=== PATIENT | female | born 1970 | race Caucasian/White ===

== ENCOUNTER 2020-07-18 16:19 | Emergency (ER) | payer MEDICAID ==
[~2020-07-18] VITALS: Ht 167.6 cm; Wt 85.0 kg
[2020-07-18] MEDS ORDERED: ONDANSETRON PF 4 MG/2 ML VIAL. IVP ONE (16:45)
[2020-07-18] MEDS ORDERED: IV NORMAL SALINE 1000ML BAG 1,000 ML IV ONE (16:45)
[2020-07-18] MEDS ORDERED: MORPHINE SULFATE 4 MG/ML VIAL. IV ONE (16:45)
[2020-07-18 16:56] LABS: BILIRUBIN,URINE NEGATIVE (NEG); CLARITY,URINE CLOUDY; COLOR,URINE YELLOW; NITRITE,URINE NEGATIVE (NEG); PH,URINE 6.5 (<5.0-8.0); PROTEIN,URINE NEGATIVE (NEG-TRACE)
[2020-07-18 17:02] LABS: BARBITURATES NEG (NEG); BENZODIAZEPINES POS (NEG); CANNABINOIDS POS (NEG); COCAINE NEG (NEG); METHADONE NEG (NEG); OPIATES NEG (NEG); PHENCYCLIDINE NEG (NEG)
[2020-07-18 17:06] LABS: AMPHETAMINE/METHAMPHETAMINE POS (NEG)
[2020-07-18 17:07] LABS: BACTERIA,URINE FEW /HPF (0-FEW); RBC,URINE 0 /HPF (0-2); SQUAMOUS EPITHELIAL CELL,UR OCC /LPF; WBC,URINE OCC /HPF (0-4)
[2020-07-18] MEDS ORDERED: METOCLOPRAMIDE HCL 10 MG/2 ML VIAL. IVP ONE (17:15)
[2020-07-18 17:36] LABS: BASO % 0 % (0-3); EOS # 0.1 x10^3/uL (0.0-0.7); EOS % 1 % (0-3); HEMOGLOBIN 13.9 g/dL (12.0-15.5); LYMPH # 1.8 x10^3/uL (1.0-4.8); LYMPH % 14 % (24-48); MEAN CORPUSCULAR HEMOGLOBIN 31 pg (25-35); MEAN CORPUSCULAR HGB CONC 34 g/dL (31-37); MEAN CORPUSCULAR VOLUME 91 fL (79-100); MONO # 0.7 x10^3/uL (0.0-1.1); MONO % 5 % (0-9); NEUT # 10.6 x10^3/uL (1.8-7.7); NEUT % 81 % (31-73); PLATELET COUNT 309 x10^3/uL (140-400); RED BLOOD COUNT 4.51 x10^6/uL (3.50-5.40); RED CELL DISTRIBUTION WIDTH 13.2 % (11.5-14.5); WHITE BLOOD COUNT 13.2 x10^3/uL (4.0-11.0)
[2020-07-18 18:02] LABS: CALCIUM 8.9 mg/dL (8.5-10.1); CREATININE 0.6 mg/dL (0.6-1.0); POTASSIUM 4.2 mmol/L (3.5-5.1)
[2020-07-18 18:05] LABS: ALBUMIN 3.3 g/dL (3.4-5.0); TOTAL BILIRUBIN 0.2 mg/dL (0.2-1.0); TOTAL PROTEIN 6.5 g/dL (6.4-8.2)
[2020-07-18] MEDS ORDERED: IOHEXOL 300 MG/ML 100ML VIAL. IV ONE (18:15)
[2020-07-18] MEDS ORDERED: CONTRAST GIVEN. MC PRN (18:15)
[2020-07-18 18:50] VITALS: BP 141/72
--- NOTE | 2020-07-18 18:59 | RAD ---
Study: CT abdomen/pelvis with intravenous contrast Indication: Abdominal pain. History of diverticulitis. Comparison: None. Technique: Helical CT imaging performed of the abdomen and pelvis after the intravenous administration of 75 cc Omnipaque 300 contrast. Sagittal and coronal reformats were obtained. One or more of the following individualized dose reduction techniques were utilized for this examination: 1. Automated exposure control 2. Adjustment of the mA and/or kV according to patient size 3. Use of iterative reconstruction technique. Findings: No acute abnormality at the lower chest. Sequela of a remote granulomatous process. A few faint subcentimeter low-attenuation foci seen within the liver are incompletely characterized but statistically most likely benign in the absence of a known malignancy. The liver measures prominent in size at around 20 cm longitudinal. The gallbladder is distended but without CT findings to suggest acute cholecystitis. Unremarkable biliary tree. The pancreas is within normal limits. The spleen is normal in size. No adrenal gland mass. No complex renal cyst or mass. No hydronephrosis. Within normal limits bladder. Left ovarian cyst or dominant follicle (the patient is pre or perimenopausal), image 56 series 2, measures up to 3.2 cm. No suspicious features to warrant short-term follow-up. Nonmasslike region of low attenuation at the lower uterine segment/cervix. There may be a uterine fibroid along the right aspect of the fundus, image 60 series 2. Scattered diverticuli without findings of diverticulitis. Mild volume well-formed stool distal to the transverse colon. Some incompletely formed stool within the more proximal colon. Normal appendix. Nonobstructed small bowel. Unremarkable stomach. Scattered calcified and noncalcified atheromatous plaque. Nonaneurysmal aorta. No lymphadenopathy. No large volume free fluid. No pneumoperitoneum. No acute or aggressive osseous process. Operative changes of dorsal decompression and posterior instrumented fusion at L4-L5. Vacuum phenomenon and extensive endplate sclerosis in keeping with adjacent segment degeneration at L5-S1 particularly lateralized to the left. Impression: 1. Diverticulosis without findings of diverticulitis. 2. Small amount of incompletely formed stool within the proximal colon could indicate a diarrheal state. There is more well-formed stool distally. No findings to suggest an overt active colitis. 3. Distended gallbladder but without CT findings of acute cholecystitis. As deemed necessary, such as if there are symptoms referrable to this region, ultrasound could be performed. 4. 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 Additional chronic observations detailed in the body the report. Electronically signed by: JAGJIT ZAMBRANO MD (07/18/2020 6:56 PM) [id number]
--- NOTE | 2020-07-18 19:17 | PHYS DOC ---
Past Medical History Past Medical History: Diverticulosis Past Surgical History: No Surgical History Smoking Status: Current Every Day Smoker Alcohol Use: None General Adult EDM: Chief Complaint: ABDOMINAL PAIN HPI: HPI: Patient is a 50 year old female with history of diverticulitis presenting today complaining of generalized abdominal pain, nausea vomiting and diarrhea intermittently for 1 week. Patient believes her diverticulitis is flaring up. Describes abdominal pain as cramping and mild. Denies anything specifically exacerbating or relieving her symptoms. Denies any hematemesis or melena. Review of Systems: Review of Systems: Constitutional: Denies fever or chills. [] Eyes: Denies change in visual acuity. [] HENT: Denies nasal congestion or sore throat. [] Respiratory: Denies cough or shortness of breath. [] Cardiovascular: Denies chest pain or edema. [] GI: Reports generalized abdominal pain with nausea vomiting and diarrhea : Denies dysuria. [] Musculoskeletal: Denies back pain or joint pain. [] Integument: Denies rash. [] Neurologic: Denies headache, focal weakness or sensory changes. [] Psychiatric: Denies depression or anxiety. [] Heart Score: Risk Factors: Risk Factors: DM, Current or recent (<one month) smoker, HTN, HLP, family history of CAD, obesity. Risk Scores: Score 0 - 3: 2.5% MACE over next 6 weeks - Discharge Home Score 4 - 6: 20.3% MACE over next 6 weeks - Admit for Clinical Observation Score 7 - 10: 72.7% MACE over next 6 weeks - Early Invasive Strategies Current Medications: Current Medications Medications (Trade) Dose Ordered Sig/Sang Start Time Stop Time Status Last Admin Dose Admin Info (CONTRAST GIVEN -- Rx MONITORING) 1 each PRN DAILY PRN 07/18/20 18:15 07/20/20 18:14 Iohexol (Omnipaque 300 Mg/ml) 75 ml 1X ONCE 07/18/20 18:15 07/18/20 18:16 DC 07/18/20 18:18 75 ML Metoclopramide HCl (Reglan Vial) 10 mg 1X ONCE 07/18/20 17:15 07/18/20 17:16 DC 07/18/20 17:30 10 MG Morphine Sulfate (Morphine Sulfate) 4 mg 1X ONCE 07/18/20 16:45 07/18/20 17:01 DC 07/18/20 17:30 4 MG Ondansetron HCl (Zofran) 4 mg 1X ONCE 07/18/20 16:45 07/18/20 16:46 Cancel Sodium Chloride 1,000 ml @ 1,000 mls/hr 1X ONCE 07/18/20 16:45 07/18/20 17:44 DC 07/18/20 17:30 1,000 MLS/HR Allergies: Allergies: Allergies Coded Allergies Type Severity Reaction Last Updated Verified cephalexin Allergy Unknown 07/18/20 Yes divalproex sodium Allergy Unknown 07/18/20 Yes ondansetron Allergy Unknown 07/18/20 Yes Physical Exam: PE: Constitutional: Well developed, well nourished, no acute distress, non-toxic appearance. [] HENT: Normocephalic, atraumatic, bilateral external ears normal, oropharynx moist, no oral exudates, nose normal. [] Eyes: PERRLA, EOMI, conjunctiva normal, no discharge. [] Neck: Normal range of motion, no tenderness, supple, no stridor. [] Cardiovascular:Heart rate regular rhythm, no murmur [] Lungs & Thorax: Bilateral breath sounds clear to auscultation [] Abdomen: Bowel sounds normal, soft, no tenderness, no masses, no pulsatile masses. [] Skin: Warm, dry, no erythema, no rash. [] Back: No tenderness, no CVA tenderness. [] Extremities: No tenderness, no cyanosis, no clubbing, ROM intact, no edema. [] Neurologic: Alert and oriented X 3, normal motor function, normal sensory function, no focal deficits noted. [] Psychologic: Affect normal, judgement normal, mood normal. [] Current Patient Data: Labs: Laboratory Tests Test 07/18/20 16:45 07/18/20 17:25 Urine Collection Type Unknown Urine Color Yellow Urine Clarity Cloudy Urine pH 6.5 (<5.0-8.0) Urine Specific [place] >=1.030 (1.000-1.030) Urine Protein Negative mg/dL (NEG-TRACE) Urine Glucose (UA) Negative mg/dL (NEG) Urine Ketones (Stick) Negative mg/dL (NEG) Urine Blood Negative (NEG) Urine Nitrite Negative (NEG) Urine Bilirubin Negative (NEG) Urine Urobilinogen Dipstick 1.0 mg/dL (0.2 mg/dL) Urine Leukocyte Esterase Negative (NEG) Urine RBC 0 /HPF (0-2) Urine WBC Occ /HPF (0-4) Urine Squamous Epithelial Cells Occ /LPF Urine Bacteria Few /HPF (0-FEW) Urine Mucus Mod /LPF Urine Opiates Screen Neg (NEG) Urine Methadone Screen Neg (NEG) Urine Barbiturates Neg (NEG) Urine Phencyclidine Screen Neg (NEG) Urine Amphetamine/Methamphetamine Pos (NEG) Urine Benzodiazepines Screen Pos (NEG) Urine Cocaine Screen Neg (NEG) Urine Cannabinoids Screen Pos (NEG) Urine Ethyl Alcohol Neg (NEG) White Blood Count 13.2 x10^3/uL (4.0-11.0) H Red Blood Count 4.51 x10^6/uL (3.50-5.40) Hemoglobin 13.9 g/dL (12.0-15.5) Hematocrit 41.0 % (36.0-47.0) Mean Corpuscular Volume 91 fL (79-100) Mean Corpuscular Hemoglobin 31 pg (25-35) Mean Corpuscular Hemoglobin Concent 34 g/dL (31-37) Red Cell Distribution Width 13.2 % (11.5-14.5) Platelet Count 309 x10^3/uL (140-400) Neutrophils (%) (Auto) 81 % (31-73) H Lymphocytes (%) (Auto) 14 % (24-48) L Monocytes (%) (Auto) 5 % (0-9) Eosinophils (%) (Auto) 1 % (0-3) Basophils (%) (Auto) 0 % (0-3) Neutrophils # (Auto) 10.6 x10^3/uL (1.8-7.7) H Lymphocytes # (Auto) 1.8 x10^3/uL (1.0-4.8) Monocytes # (Auto) 0.7 x10^3/uL (0.0-1.1) Eosinophils # (Auto) 0.1 x10^3/uL (0.0-0.7) Basophils # (Auto) 0.0 x10^3/uL (0.0-0.2) Sodium Level 140 mmol/L (136-145) Potassium Level 4.2 mmol/L (3.5-5.1) Chloride Level 105 mmol/L (98-107) Carbon Dioxide Level 27 mmol/L (21-32) Anion Gap 8 (6-14) Blood Urea Nitrogen 15 mg/dL (7-20) Creatinine 0.6 mg/dL (0.6-1.0) Estimated GFR (Cockcroft-Gault) 105.0 BUN/Creatinine Ratio 25 (6-20) H Glucose Level 111 mg/dL (70-99) H Calcium Level 8.9 mg/dL (8.5-10.1) Total Bilirubin 0.2 mg/dL (0.2-1.0) Aspartate Amino Transferase (AST) 14 U/L (15-37) L Alanine Aminotransferase (ALT) 23 U/L (14-59) Alkaline Phosphatase 68 U/L (46-116) Total Protein 6.5 g/dL (6.4-8.2) Albumin 3.3 g/dL (3.4-5.0) L Albumin/Globulin Ratio 1.0 (1.0-1.7) Lipase 78 U/L (73-393) Ethyl Alcohol Level < 10 mg/dL (0-10) Laboratory Tests 07/18/20 17:25 Laboratory Tests 07/18/20 17:25 Vital Signs: Vital Signs Date Time Temp Pulse Resp B/P (MAP) Pulse Ox O2 Delivery O2 Flow Rate FiO2 07/18/20 17:54 60 155/77 (103) 97 Room Air 07/18/20 17:30 18 07/18/20 16:25 97.8 97.8 EKG: EKG: [] Radiology/Procedures: Radiology/Procedures: []PROCEDURE: CT ABD PELV W/ IV CONTRST ONLY Study: CT abdomen/pelvis with intravenous contrast Indication: Abdominal pain. History of diverticulitis. Comparison: None. Technique: Helical CT imaging performed of the abdomen and pelvis after the intravenous administration of 75 cc Omnipaque 300 contrast. Sagittal and coronal reformats were obtained. One or more of the following individualized dose reduction techniques were utilized for this examination: 1. Automated exposure control 2. Adjustment of the mA and/or kV according to patient size 3. Use of iterative reconstruction technique. Findings: No acute abnormality at the lower chest. Sequela of a remote granulomatous process. A few faint subcentimeter low-attenuation foci seen within the liver are incompletely characterized but statistically most likely benign in the absence of a known malignancy. The liver measures prominent in size at around 20 cm longitudinal. The gallbladder is distended but without CT findings to suggest acute cholecystitis. Unremarkable biliary tree. The pancreas is within normal limits. The spleen is normal in size. No adrenal gland mass. No complex renal cyst or mass. No hydronephrosis. Within normal limits bladder. Left ovarian cyst or dominant follicle (the patient is pre or perimenopausal), image 56 series 2, measures up to 3.2 cm. No suspicious features to warrant short-term follow-up. Nonmasslike region of low attenuation at the lower uterine segment/cervix. There may be a uterine fibroid along the right aspect of the fundus, image 60 series 2. Scattered diverticuli without findings of diverticulitis. Mild volume well-formed stool distal to the transverse colon. Some incompletely formed stool within the more proximal colon. Normal appendix. Nonobstructed small bowel. Unremarkable stomach. Scattered calcified and noncalcified atheromatous plaque. Nonaneurysmal aorta. No lymphadenopathy. No large volume free fluid. No pneumoperitoneum. No acute or aggressive osseous process. Operative changes of dorsal decompression and posterior instrumented fusion at L4-L5. Vacuum phenomenon and extensive endplate sclerosis in keeping with adjacent segment degeneration at L5-S1 particularly lateralized to the left. Impression: 1. Diverticulosis without findings of diverticulitis. 2. Small amount of incompletely formed stool within the proximal colon could indicate a diarrheal state. There is more well-formed stool distally. No findings to suggest an overt active colitis. 3. Distended gallbladder but without CT findings of acute cholecystitis. As deemed necessary, such as if there are symptoms referrable to this region, ultrasound could be performed. 4. 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 Additional chronic observations detailed in the body the report. Electronically signed by: JAGJIT ZAMBRANO MD (07/18/2020 6:56 PM) [id number] DICTATED and SIGNED BY: JAGJIT ZAMBRANO MD DATE: 07/18/201855 Course & Med Decision Making: Course & Med Decision Making Pertinent Labs and Imaging studies reviewed. (See chart for details) This is a 50-year-old female patient presenting to the ED today complaining of generalized abdominal pain with nausea vomiting or diarrhea and concern she is having a diverticulitis flareup. CBC with a WBC of 13.2, CMP with no acute findings, urine analysis negative for any acute findings. Urine drug screen positive for benzodiazepines, methamphetamine, and marijuana. CT of the abdomen and pelvic is negative for any acute findings, noted for diverticulosis. Patient was discharged to home. Follow-up with PCP in 1 to 2 weeks or the provided education and training manager. Lexis Disclaimer: Dragon Disclaimer: This electronic medical record was generated, in whole or in part, using a voice recognition dictation system. Departure Departure Impression: Primary Impression: Diverticulosis Additional Impressions: Generalized abdominal pain Drug use Disposition: HOME, SELF-CARE Condition: STABLE Referrals: CAROLE SADLER MD (PCP) follow up in one week Patient Instructions: Diverticulosis Additional Instructions: You were evaluated in the emergency room, your CAT scan of the abdomen and pelvic was negative for diverticulitis noted for divertuculosis. Please follow-up with your own doctor or the provided GI doctor. Justicifation of Admission Dx: Justifications for Admission: Justification of Admission Dx: N/A FRANDY HEIN APRN Jul 18, 2020 19:17
--- NOTE | 2020-07-22 09:11 | NUR ---
IP: Attempted to contact pt to inform her of COVID test results. Left voicemail for return call.
--- NOTE | 2020-07-22 10:03 | NUR ---
IP: Pt returned call and I informed her of the negative COVID results. Pt verbalized understanding.
== END 2020-07-18 19:59 | disposition home or self-care (01) ==
LOC: ER 16:19
DX: K57.90 Diverticulosis of intestine, part unspecified, without perforation or abscess without bleeding (principal); F15.90 Other stimulant use, unspecified, uncomplicated; F12.90 Cannabis use, unspecified, uncomplicated; Z20.828 Contact with and (suspected) exposure to other viral communicable diseases; F17.200 Nicotine dependence, unspecified, uncomplicated; F13.20 Sedative, hypnotic or anxiolytic dependence, uncomplicated; Z88.1 Allergy status to other antibiotic agents; Z88.5 Allergy status to narcotic agent; Z88.8 Allergy status to other drugs, medicaments and biological substances
CPT/HCPCS: 36415; 74177; 80053; 80307; 81001; 83690; 85025; 96361; 96374; 96375; 99285; G0480; J2270; J2765; J7030; Q9967; U0003